=== PATIENT | male | born 1965 | race Caucasian/White ===

== ENCOUNTER → 2016-05-03 | Outpatient (CLI) | payer OTHER ==
--- NOTE | 2016-05-03 12:00 | DX ---
Right Knee, 3 Views, at 10:28 a.m. Clinical History: 51-year-old male with proximal patellar pain while walking up stairs, worsening rec ently. ICD-10 Diagnostic Code: M25.561. Comparison Study: None. Findings: Bone mineralization is preserved. The femoral-tibial compartments are reasonably well-prese rved, however, there is some mild lateral patellofemoral joint space narrowing and associated lateral patellar tilting and minimal subluxation, suggestive of a patellar tracking problem noted on the sun rise view. There is no suprapatellar joint effusion. There is a normal variant oval-shaped bone islan d associated with the proximal medial tibial diaphysis. Impression: Lateral patellar tilting with mild lateral patellofemoral joint space narrowing, suggest coni of a patellar tracking issue. If there is further clinical concern regarding the patient's symptoms, MR imaging could be considered .
== END ==
LOC: BMCIMAGING 10:30
PROVIDERS: ATTEND Family Medicine
DX: M22.2X2 Patellofemoral disorders, left knee (principal)